=== PATIENT | male | born 1980 | race Caucasian/White ===

== ENCOUNTER → 2021-07-12 14:44 | Outpatient (BNVA) | payer MEDICARE, SELFPAY | PROVIDERS: PCP Internal Medicine Endocrinology, Diabetes & Metabolism; Visit Provider Psychiatry & Neurology Neurology | DX: R26.9 Unspecified abnormalities of gait and mobility (principal); G47.62 Sleep related leg cramps; R20.0 Anesthesia of skin; R20.2 Paresthesia of skin | CPT/HCPCS: 99202 ==

== ENCOUNTER 2021-07-30 19:17 | Outpatient (REF) | payer MEDICARE, SELFPAY ==
--- NOTE | ~2021-07-30 | MR_ITS ---
MR CERVICAL SPINE WITHOUT CONTRAST CLINICAL INFORMATION: Numbness and tingling sensation of the skin with abnormal gait. COMPARISON: None available. TECHNIQUE: MRI of the cervical spine was obtained using routine sequences without contrast. FINDINGS: Cervical alignment is normal. The vertebral body heights are maintained. The disc volumes are preserved. There is no bone marrow edema. There are no acute fractures. Craniocervical junction is unremarkable. Partially imaged intracranial compartment is unremarkable. Cervical arterial flow voids are maintained. There are no significant extra spinal soft tissue findings. There are no cord signal changes. Cervical disc contours are normal. There is no central canal stenosis and there is no foraminal stenosis within the cervical spine. MR/MR cervical spine wo con IMPRESSION: Unremarkable MRI of the cervical spine.
== END 2021-07-30 19:18 | disposition home or self-care (01) ==
LOC: HO.MRI 19:17
PROVIDERS: Visit Provider Psychiatry & Neurology Neurology
DX: R20.0 Anesthesia of skin (principal)
CPT/HCPCS: 72141

== ENCOUNTER 2021-07-31 21:28 | Emergency (ER) | payer MEDICARE, SELFPAY ==
[2021-07-31 21:37] VITALS: BP 140/95; PULSE 93; RESP 16; TEMP 36.6; O2SAT 96; BMI 31.8
[2021-07-31 22:14] LABS: MANUAL DIFF FLAG NO
[2021-07-31 22:15] LABS: Basophils Percent Auto 0.5 % (0-2); Eosinophils Absolute Auto 0.3 X10*3/uL (0.0-0.4); Eosinophils Percent Auto 3.5 % (0-4); Hemoglobin 15.8 g/dl (14.0-18.0); Imm Gran Abs Auto 0.02 X10*3/uL (0.00-0.03); Imm Gran Pct Auto 0.3 % (0.0-0.4); Lymphocytes Absolute Auto 2.5 X10*3/uL (1.2-4.9); Lymphocytes Percent Auto 32.9 % (20-40); Mean Corpuscular HGB Conc 34.3 g/dl (31.0-36.0); Mean Corpuscular Hemoglobin 30.7 pg (27.0-33.0); Mean Corpuscular Volume 89.5 fL (80.0-98.0); Mean Platelet Volume 10.1 fL (9.4-12.4); Monocytes Absolute Auto 0.9 X10*3/uL (0.1-1.2); Monocytes Percent Auto 11.2 % (2-11); Neutrophils Percent Auto 51.6 % (45-73); Platelet Count 253 X10*3/uL (160-400); Red Blood Count 5.14 X10*6/uL (4.60-5.80); Red Cell Distribution Width 13.4 % (11.0-16.0); White Blood Count 7.7 X10*3/uL (4.8-10.8)
[2021-07-31 22:16] LABS: Appearance Urine CLEAR; Color Urine YELLOW; Glucose Urine UA NEG (NEG); Leukocyte Esterase Urine NEG (NEG); Nitrite Urine NEG (NEG); PH 6.5 (5.0-8.0); Urine Blood NEG (NEG); Urine Ketones NEG (NEG); Urine Protein NEG (NEG-TRACE)
[2021-07-31 22:31] LABS: Anion Gap 14 (12-20); Blood Urea Nitrogen 10 mg/dL (9-16); Calcium 9.4 mg/dL (8.4-10.2); Carbon Dioxide 21 mmol/L (22-29); Chloride 107 mmol/L (96-108); Creatinine Clr Calc Pharmacy 126.5; Estimated Glomerular Filt Rate > 60; Glucose Random 91 mg/dL (60-115); Potassium 3.6 mmol/L (3.3-5.1); Sodium 138 mmol/L (135-145)
== END 2021-07-31 23:51 | disposition left against medical advice (07) ==
PROVIDERS: Emergency Provider Emergency Medicine
DX: R25.1 Tremor, unspecified (principal); Z79.899 Other long term (current) drug therapy
CPT/HCPCS: 36415; 80048; 81003; 85025; 99283

== ENCOUNTER 2021-08-03 13:11 | Outpatient (REF) | payer MEDICARE, SELFPAY ==
--- NOTE | ~2021-08-03 | CT_ITS ---
CT LUMBAR SPINE WITHOUT CONTRAST CLINICAL INFORMATION: Anesthesia of the skin. COMPARISON: None TECHNIQUE: Multidetector CT acquisition of the lumbar spine is obtained without contrast. This CT examination was performed using dose optimization techniques as appropriate, variously including the following: *Automated exposure control *Adjustment of mA and/or kV according to patient size (this includes techniques or standardized protocols for targeted exams where dose is matched to indication/reason for exam; i.e. extremities or head) *Use of iterative reconstruction technique FINDINGS: There are 5 nonrib-bearing lumbar-type vertebral bodies. There are no acute fractures and there are no acute subluxations. Vertebral body heights are maintained. The disc volumes are preserved. There are no acute fractures and there are no acute subluxations. Spinal stimulator device and electrodes are partially imaged on the localizer radiographs. There is a 3 mm nonobstructing calculus within the right kidney. L1-L2: Disc contour is normal. No central canal stenosis and no foraminal stenosis. L2-L3: Small annular disc bulge. No central canal stenosis and no foraminal stenosis. L3-L4: Diffuse annular disc bulge and bilateral facet arthropathy. No central canal stenosis and no foraminal stenosis. L4-L5: Diffuse annular disc bulge and bilateral facet arthropathy. No central canal stenosis and no foraminal stenosis. L5-S1: Diffuse annular disc bulge and bilateral facet arthropathy. No central canal stenosis and no foraminal stenosis. CT/CT lumbar spine wo con IMPRESSION: - There is a 3 mm nonobstructing calculus within the right kidney. - There is mild multilevel lumbar spondylosis. There is no severe central canal stenosis and there is no severe foraminal stenosis within the lumbar spine. There is a partially imaged spinal stimulator device best seen on the localizer radiographs.
== END 2021-08-03 13:12 | disposition home or self-care (01) ==
LOC: HO.CT 13:11
PROVIDERS: Visit Provider Psychiatry & Neurology Neurology
DX: R20.0 Anesthesia of skin (principal); R20.2 Paresthesia of skin; R26.9 Unspecified abnormalities of gait and mobility; N20.0 Calculus of kidney; G47.62 Sleep related leg cramps; Y99.0 Civilian activity done for income or pay
CPT/HCPCS: 72131

== ENCOUNTER 2021-08-22 08:48 | Outpatient (REF) | payer MEDICARE, SELFPAY ==
--- NOTE | 2021-08-22 08:54 | EMG_ITS ---
This is a 41-year-old man with multiple complaints including tremors, pain, numbness, tingling, weakness, difficulty walking, who states that he may have ALS or Parkinson disease or MS. His neurological examination is unremarkable. Nerve conduction EMG study: Normal electrodiagnostic study of both lower extremities with no evidence of nerve entrapment or generalized peripheral neuropathy. Normal EMG of the L1-S1 innervated muscles bilaterally with no myopathic changes or evidence of denervation. If indicated, separate upper extremity nerve conduction can be scheduled. MD KRISTA Mendes/MONIKA / [id number]
== END 2021-08-22 08:49 | disposition home or self-care (01) ==
LOC: HO.NEURO 08:48
PROVIDERS: Visit Provider Psychiatry & Neurology Neurology
DX: R20.0 Anesthesia of skin (principal); R20.2 Paresthesia of skin; R26.9 Unspecified abnormalities of gait and mobility
CPT/HCPCS: 95885; 95886; 95912